=== PATIENT | female | born 1980 | race Caucasian/White ===

== ENCOUNTER → 2016-11-02 | Outpatient (CLI) | payer BC ==
[~2016-11-02] MED LIST: ACET-749 PO; ACET300T2 PO; LORA10CA2 PO; MTR600X PO; PRENTAB26 PO; VALA500T60 PO
== END | disposition home or self-care (01) ==
LOC: C.PAPS 09:55
PROVIDERS: ATTEND Obstetrics & Gynecology
DX: Z01.419 Encounter for gynecological examination (general) (routine) without abnormal findings (principal)

== ENCOUNTER 2016-11-06 07:39 | Day surgery (SDC) | payer BC ==
[2016-11-05 14:39] LABS: HEMATOCRIT 39.5 % (37-47); MEAN CELL VOLUME 91.4 fL (80-100); MEAN CORPUSCULAR HGB CONC 33.9 g/dl (32-36); MEAN PLATELET VOLUME 9.6 fL (7.4-10.4); PLATELET COUNT 335 K/uL (130-400); RED BLOOD COUNT 4.32 M/uL (4.2-5.4); WHITE BLOOD COUNT 9.19 K/uL (4.8-10.8)
[2016-11-05 18:29] VITALS: BMI 23.0
[~2016-11-06] VITALS: Ht 165.1 cm; Wt 65.0 kg
[~2016-11-06 07:39] MED LIST changes: -ACET-749 PO; -ACET300T2 PO; +LACTATED RINGER'S 1000ML 1,000 ML IV SCH; -VALA500T60 PO
[2016-11-06 07:45] VITALS: BP 110/62; PULSE 70; TEMP 36.8; O2SAT 100; Ht 165.1 cm; Wt 65.0 kg
[2016-11-06] MEDS ORDERED: FENTANYL CITRATE INJ 50 MCG/1 ML 2 ML VIAL ONE ×2 (07:52)
[2016-11-06] MEDS ORDERED: MIDAZOLAM HCL 1 MG/ML 2ML VIAL ONE (07:52)
[2016-11-06] MEDS ORDERED: BUPIVACAINE 0.5 % 5 MG/1 ML MPF 30ML VIAL ONE (08:27)
--- NOTE | 2016-11-06 08:52 | History & Physical Bridge Note ---
H&P Re-Evaluation Bridge Note: I have examined the patient, reviewed the History & Physical and in the interval since the performance of the History & Physical I have noted the following changes of clinical significance: No changes noted
[2016-11-06] MEDS ORDERED: EpHEDrine SULFATE INJ 50 MG/ML AMP IV PRN (09:15)
[2016-11-06] MEDS ORDERED: FLUMAZENIL 0.1 MG/1 ML 10 ML VIAL IV PRN (09:15)
[2016-11-06] MEDS ORDERED: HYDROmorphone INJ 1 MG/ML SYR IV PRN (09:15)
[2016-11-06] MEDS ORDERED: ATROPINE SULFATE 0.1 MG/ML 5ML SYR IV PRN (09:15)
[2016-11-06] MEDS ORDERED: NALOXONE HCL 0.4 MG/1 ML VIAL/CARP IV PRN (09:15)
[2016-11-06] MEDS ORDERED: ONDANSETRON INJ 2 MG/ML 2 ML VIAL IV PRN ×2 (09:15→10:30)
[2016-11-06] MEDS ORDERED: LARYING-O-JET KIT (LTA) EXT ONE ×2 (09:19)
[2016-11-06] MEDS ORDERED: DiphenhydrAMINE HCL 50 MG/ML VIAL ONE (09:19)
[2016-11-06] MEDS ORDERED: PROPOFOL IV EMULSION 10 MG/ML 20 ML VIAL IV ONE (09:19)
[2016-11-06] MEDS ORDERED: METOCLOPRAMIDE HCL INJ 5 MG/ML 2 ML VIAL ONE (09:19)
[2016-11-06] MEDS ORDERED: ONDANSETRON INJ 2 MG/ML 2 ML VIAL ONE (09:19)
[2016-11-06] MEDS ORDERED: ROCURONIUM BROMIDE 10 MG/ML 5 ML VIAL ONE (09:19)
[2016-11-06] MEDS ORDERED: DEXAMETHASONE SOD INJ 4 MG/ML VIAL ONE (09:19)
[2016-11-06] MEDS ORDERED: LIDOCAINE HCL 2% 2 ML VIAL (20MG/ML) ONE (09:19)
[2016-11-06] MEDS ORDERED: EpHEDrine SULFATE 50MG/5ML SYR ONE (09:35)
[2016-11-06] MEDS ORDERED: GLYCOPYRROLATE INJ 0.2 MG/ML VIAL ONE (09:49)
[2016-11-06] MEDS ORDERED: NEOSTIGMINE METHYLSULFATE 5 MG/5 ML SYR ONE (09:49)
[2016-11-06] MEDS ORDERED: KETOROLAC TROMETHAMINE 30 MG/ML VIAL ONE (09:49)
[2016-11-06] MEDS ORDERED: SODIUM CHLORIDE 0.9% 1000ML 1,000 ML IV SCH (10:22)
[2016-11-06] MEDS ORDERED: ACET300T2 PO (10:25)
[2016-11-06] MEDS ORDERED: IBUPROFEN 600 MG TAB PO PRN (10:30)
[2016-11-06] MEDS ORDERED: KETOROLAC TROMETHAMINE 30 MG/ML VIAL IV. PRN (10:30)
[2016-11-06] MEDS ORDERED: OXYCODONE/ACETAMINOPHEN 5-325 TAB PO PRN ×2 (10:30)
--- NOTE | 2016-11-06 10:30 | Discharge Instructions ---
Discharge Instructions Date of Service November 06, 2016. Admission Reason for Admission: Complex Ovarian Cyst Discharge Discharge Diagnosis / Problem: s/p surgery Discharge Goals Goal(s): Routine recovery after surgery Activity Recommendations Activity Limitations: as noted below ACTIVITY RECOMMENDATIONS: * Rest the first 1-2 days. You should be back to your normal activity levels by day 3. * No heavy lifting for 2 weeks. * No intercourse, tampons or douching for 1-2 weeks. * You may shower the next day. * Do not drive anytime that you are taking narcotic pain medicines. RETURN TO SCHOOL/WORK: * May return to school or work after 1-2 days. DIET: Nausea may occur in the immediate post-operative period. If so, take clear liquids such as tea, bouillon, apple juice until all nausea has subsided, then resume usual diet. MEDICATIONS: Resume previous medications unless instructed otherwise by your surgeon. Ibuprofen 200mg 2-3 tablets every 4-6 hours as needed -- OR -- Aleve 2 tablets every 8-12 hours as needed for post-operative discomfort Medications are over the counter. Tylenol may be used if above medications are contraindicated or not preferred. Medication should be taken with food or milk. Do not take on an empty stomach. SPECIAL CARE INSTRUCTIONS: * Check temperature twice daily for one week. report any elevation over 101 degrees. * You may experience some vagina spotting and/or bleeding. This is normal for 1 -2 weeks and should not be heavier than a normal period. If it is unusual in amount, call your physician. * Post-operative discomfort may consist of a sore throat, a "bloated" feeling and pain in the shoulders. these are normal symptoms, which usually only last for 2-3 days. FOLLOW UP VISIT: Call your doctor's office for a post-operative 2 week visit if not already scheduled. . Current Hospital Diet Patient's current hospital diet: Discharge Diet Recommended Diet: Regular Diet Procedures Procedures Performed: Laparoscopic Right Ovarian Cystectomy Pending Studies Studies pending at discharge: yes List of pending studies: pathology Medical Emergencies . Who to Call and When: Medical Emergencies: If at any time you feel your situation is an emergency, please call 911 immediately. . Non-Emergent Contact Non-Emergency issues call your: Line Mover . . "Provider Documentation" section prepared by Adelina Jewell. . VTE Core Measure Inpt VTE Proph given/why not?: Treatment not indicated [place] Drug Monitoring Program Search Results: no issues identified
--- NOTE | 2016-11-06 10:32 | [facility] Post Operative Brief Note ---
Immediate Operative Summary Operative Date November 06, 2016. Pre-Operative Diagnosis Right ovarian complex cyst Post-Operative Diagnosis Same as preop, hemorrhagic cyst with hemoperitoneum Procedure(s) Performed Laparoscopic Right Ovarian Cystectomy Surgeon Dr. Jewell Button Reclaimer Surgeon(s) Dr. Grimes Estimated Blood Loss 1 cc Findings spill of blood in pelvis. no active bleeding. enlarged right ovarian cyst, left ovary normal. nl liver edge, gb, appendix. Fluids (cc crystalloids) 1300 Specimens A: right ovarian cyst wall Drains none Anesthesia general Complication(s) None Disposition Recovery Room / PACU
--- NOTE | 2016-11-06 11:00 | OPERATIVE REPORT ---
DATE OF OPERATION: 11/06/2016 PREOPERATIVE DIAGNOSES: 1. Right complex ovarian cyst. 2. Female pelvic pain. 3. Dyspareunia. POSTOPERATIVE DIAGNOSES: 1. Same. 2. Right hemorrhagic cyst. PROCEDURE: Operative laparoscopy with right ovarian cystectomy. SURGEON: Dr. Adelina Jewell. ORDER PROCESSING SPECIALIST: Dr. Canelo Grimes. INTRAVENOUS FLUIDS: 1500 mL. ESTIMATED BLOOD LOSS: 1 mL. ANESTHESIA: General. FINDINGS: Right ovary enlarged with obvious spill of blood within the pelvis. No active bleeding. Cyst notably approximately 4 cm in size. Left ovary normal. Bilateral fallopian tubes normal. Uterus normal and mobile in the pelvis. Normal appendix, gallbladder, and liver edge seen. INDICATIONS: A 36-year-old 2, para 2 with acute onset of right-sided pain this past weekend that persisted with the finding on ultrasound of a 5-cm complex ovarian cyst, suspicious for hemorrhagic cyst. The patient was given her options including pain management and reevaluation via ultrasound versus surgical management and she desires the latter. She is of note taking control pills. The patient had noted a persistent pelvic pain and also had noted significant pain with intercourse in the past month. DESCRIPTION OF PROCEDURE: The patient was taken to the operating room and identified. After adequate general anesthesia was obtained, she was placed in dorsal lithotomy position and prepped and draped in the usual sterile fashion. A Montelongo catheter was placed and instruments were used to visualize the cervix, which was grasped at its anterior lip with an Allis clamp. An acorn uterine manipulator was gently placed through the cervical os into the uterus and attached to the Allis clamp to allow for uterine manipulation. Attention was then turned to the patient's abdomen, where a 10-mm infraumbilical skin incision was made with a scalpel. The Veress needle was placed intraperitoneally with an opening pressure of 2 mmHg. A CO2 pneumoperitoneum was created. The 12-mm trocar was placed under direct visualization using the laparoscope and the patient was placed in steep Trendelenburg. Two 5-mm trocar sites were created left and right of the midline by first creating skin incisions and then placing under direct visualization 5-mm trocars. The ovary was elevated from the left trocar site and using the Harmonic scalpel, the ovary was opened up. The ovary was grasped and the cyst wall was resected and was removed in pieces. There were no active bleeding sites noted. The pelvis was irrigated. The blood spill out that was noted per the findings above was evacuated. At this point, the procedure was terminated. The CO2 gas was allowed to escape from the patient's abdomen and the trocars were removed. The patient was returned to the flat position. Her incisions were stitched with 4-0 Vicryl after the infraumbilical stitch was reapproximated using 0 Vicryl. They were injected with Marcaine and dressed with Dermabond. The vaginal instruments were removed. The Montelongo catheter was removed. The patient was returned to supine position, awoke from anesthesia and transferred to recovery in stable condition. All sponge, lap and needle counts were correct x2. I attest to the content of the Intraoperative Record and any orders documented therein. Any exceptio ns are noted below.
[2016-11-06 11:05] VITALS: BP 109/55; PULSE 64; TEMP 36.5; O2SAT 97
[2016-11-06 11:35] VITALS: BP 111/68; PULSE 81; O2SAT 98
[2016-11-06 12:05] VITALS: BP 112/64; PULSE 64; TEMP 36.8; O2SAT 98
== END 2016-11-06 12:22 | disposition home or self-care (01) ==
LOC: C.ACU 07:39
PROVIDERS: ATTEND Obstetrics & Gynecology
DX: N83.201 Unspecified ovarian cyst, right side (principal)